=== PATIENT | female | born 1995 | race Caucasian/White ===

== ENCOUNTER 2023-01-07 00:54 | Emergency (ER) | payer OTHER ==
[2023-01-07 01:10] VITALS: PULSE 99; TEMP 98; BMI 34.3
[2023-01-07 02:53] LABS: EPI CELLS 11 /uL (0-25.1); HYALINE CASTS 2 /uL (0-3.1); PH,URINE 5.5 (5.0-8.0); URINE APPEARANCE CLOUDY; URINE BILIRUBIN NEGATIVE (NEGATIVE); URINE COLOR YELLOW; URINE GLUCOSE (UA) 3+ (NEGATIVE); URINE KETONE NEGATIVE (NEGATIVE); URINE LEUK ESTERASE 1+ (NEGATIVE); URINE NITRITE POSITIVE (NEGATIVE); URINE PROTEIN 3+ (NEGATIVE); URINE RBC 109 /uL (0-23.9); URINE UROBILINOGEN 0.2 mg/dL (0.2-1.0); URINE WBC 542 /uL (0-25.8)
[2023-01-07] MEDS ORDERED: SODIUM CHLORIDE 0.9% 500 ML INFUS.BAG IV ONE (03:09)
[2023-01-07] MEDS ORDERED: CEFTRIAXONE 1 GM in DEXTROSE 5%-WATER - 100 ML IVPB ONE (03:09)
[2023-01-07 03:12] LABS: HCG,QUALITATIVE URINE Negative
[2023-01-07] MEDS ORDERED: CEFTRIAXONE 1 GM/50 ML BAG ONE (03:26)
[2023-01-07] MEDS ORDERED: ONDANSETRON 4 MG/2 ML VIAL IVPUSH ONE (03:39)
[2023-01-07] MEDS ORDERED: ONDANSETRON 4 MG/2 ML VIAL ONE (03:39)
[2023-01-07] MEDS ORDERED: EPINEPHrine 1:1,000 0.3 MG/0.3 ML SYR IM ONE (04:03)
[2023-01-07] MEDS ORDERED: EPINEPHrine 1:1,000 1,000 MCG/ML ML SQ ONE (04:04)
[2023-01-07] MEDS ORDERED: EPINEPHrine/PF 1 MG/1 ML (1:1,000) AMPULE ONE (04:04)
[2023-01-07 04:13] LABS: BASO % 0.8 % (0-2.0); EOS % 0.2 % (0-4.5); HEMATOCRIT 34.2 % (32.4-45.2); HEMOGLOBIN 11.7 GM/dL (10.7-15.3); LYMPH % 32.4 % (8-40); MCH 30.2 pg (25.7-33.7); MCHC 34.1 g/dl (32.0-36.0); MEAN CELL VOLUME 88.4 fl (80-96); MEAN PLT VOLUME 8.2 fl (7.5-11.1); MONO % 15.1 % (3.8-10.2); NEUT % 51.5 % (42.8-82.8); PLATELET COUNT 265 10^3/uL (134-434); RBC 3.86 M/mm3 (3.60-5.2); WHITE BLOOD COUNT 7.3 K/mm3 (4.0-10.0)
[2023-01-07 04:29] VITALS: BP 118/70; RESP 18
[2023-01-07 04:33] LABS: CALCIUM 8.6 mg/dL (8.5-10.1)
[2023-01-07 04:34] LABS: BLOOD UREA NITROGEN 17.4 mg/dL (7-18); MAGNESIUM 1.9 mg/dL (1.8-2.4)
[2023-01-07 04:39] LABS: BILIRUBIN,TOTAL 0.1 mg/dL (0.2-1); TOT PROT 6.7 g/dl (6.4-8.2)
[2023-01-07] MEDS ORDERED: FAMOTIDINE 20 MG/50 ML IVPB 20 MG/50 ML MG IVPB ONE (04:40)
[2023-01-07] MEDS ORDERED: methylPREDNISolone NA SUCC 125 MG/2 ML VIAL IVPB ONE (04:40)
[2023-01-07] MEDS ORDERED: FAMOTIDINE 10 MG/ML VIAL IVPB ONE (04:41)
[2023-01-07] MEDS ORDERED: methylPREDNISolone NA SUCC 125 MG/2 ML VIAL ONE (04:42)
[2023-01-07] MEDS ORDERED: FAMOTIDINE IVPB ONE (04:42)
== END 2023-01-07 06:30 | disposition left against medical advice (07) ==
LOC: JER 00:54
PROC: 3E023GC Introduction of Other Therapeutic Substance into Muscle, Percutaneous Approach (ICD-10-PCS; principal; 2023-01-07)
PROC: 3E033GC Introduction of Other Therapeutic Substance into Peripheral Vein, Percutaneous Approach (ICD-10-PCS; principal; 2023-01-07)
DX: R55 Syncope and collapse (principal)
CPT/HCPCS: 36415; 80053; 81003; 83735; 84484; 84703; 85025; 87086; 93005; 93010; 99284-25